=== PATIENT | female | born 2000 | race African-American/Black ===

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

== ENCOUNTER 2021-08-22 10:10 | Outpatient (REF) | payer OTHER, SELFPAY ==
[2021-08-22 14:03] LABS: CT PCR NOT DETECTED (Not Detect.); NG PCR NOT DETECTED (Not Detect.)
[2021-08-23 09:15] LABS: BV Int Neg Control Negative (Negative); BV Int Pos Control Positive (Positive)
== END 2021-08-22 10:11 | disposition home or self-care (01) ==
LOC: HO.LAB 10:10
PROVIDERS: Visit Provider Advanced Practice Midwife
DX: Z11.3 Encounter for screening for infections with a predominantly sexual mode of transmission (principal); Z20.2 Contact with and (suspected) exposure to infections with a predominantly sexual mode of transmission
CPT/HCPCS: 87480; 87491; 87510; 87591; 87660

== ENCOUNTER 2022-09-29 07:27 | Emergency (ER) | payer OTHER, SELFPAY ==
[2022-09-29 07:32] VITALS: BP 114/75; PULSE 77; RESP 16; TEMP 36.3; O2SAT 99; BMI 19.7
--- NOTE | 2022-09-29 07:41 | ED_ITS ---
HPI - General Adult General Chief complaint: General Medical Stated complaint: neck inj Time Seen by Provider: 09/29/22 07:40 Source: patient Mode of arrival: ambulatory Limitations: no limitations History of Present Illness HPI narrative: 22 yo female presents to the ER for evaluation of right sided neck pain that started 4 days ago when she woke up from sleep. She states she she went to move she heard a pop on the right side of her neck and had pain and limited range of motion. She states over the weekend this slowly got better. Today she woke up again with worsening pain and tightness in the right side of her neck. It is worse with any movement and palpation of the right posterior neck. She denies radiation into the head or arm, no nausea, vomiting. No injuries. MD complaint: right sided neck pain Onset (ago): day(s) (4) Location: neck Radiation: non-radiation Severity: moderate Severity scale (1-10): 6 Quality: aching and sharp Pain Consistency: intermittent Relieving factors: rest Exacerbating factors: movement Associated symptoms: denies other symptoms Treatments prior to arrival: none Related Data Previous Rx's Medication Instructions Recorded norgestimate 0.25 mg-ethinyl 1 tab PO DAILY #84 tabs 08/22/21 estradiol 35 mcg tablet (Sprintec (28)) cyclobenzaprine 10 mg tablet 10 mg PO TID PRN muscle spasm #14 09/29/22 tabs lidocaine 5 % topical patch 1 patch topical DAILY #15 ea 09/29/22 naproxen 500 mg tablet 500 mg PO BID PRN pain #20 tabs 09/29/22 Allergies Allergy/AdvReac Type Severity Reaction Status Date / Time No Known Allergies Allergy Verified 08/20/20 08:40 Review of Systems Review of Systems: Yes all other systems are reviewed and are negative [facility] Family History Family History Mother HTN (hypertension) Father Diabetes HTN (hypertension) Social History Social History (Updated 08/22/21 @ 09:08 by KAYLA Ayala) Alcohol intake: current Alcohol intake frequency: holidays/special occasions only Patient Tobacco Use Status: Never used Tobacco Advance Directives: No Advance Directives Information Provided: No Gender identity: Female Physical Exam ED Vital Signs: Vital Signs - 24 hr 09/29/22 07:32 Temperature 97.3 F Pulse Rate 77 Respiratory Rate 16 Blood Pressure 114/75 Pulse Oximetry 99 Oxygen Delivery Method Room Air BMI result Body Mass Index 19.7 Appearance: Alert. Oriented X3. No acute distress. Head: normocephalic, atraumatic. Eyes: Pupils equal, round and reactive to light. ENT: Pharynx normal. No tonsillar swelling or exudate. Neck: Normal inspection. Neck supple. No midline tenderness. There is palpable spasm and soft tissue tenderness of the right lateral and posterior neck, paraspinous muscles. CVS: Normal heart rate and rhythm. Pulses normal. Respiratory: No respiratory distress. Breath sounds normal. Abdomen: Soft and nontender. +BS x4 Skin: Skin warm and dry. Normal skin color. Normal skin turgor. No rashes. Extremities: No lower extremity edema. No joint swelling. Neuro/psych: Oriented X 3. No motor deficit. No sensory deficit. CN II-XII intact. Normal speech and cognition. Medications Administered Discontinued Medications Generic Name Dose Route Start Last Admin Trade Name Deonq PRN Reason Stop Dose Admin Acetaminophen 975 mg 09/29/22 07:57 09/29/22 08:20 Acetaminophen 325 Mg Tablet PO 09/29/22 07:58 975 mg ONCE ONE Administration Cyclobenzaprine HCl 10 mg 09/29/22 07:57 09/29/22 08:20 Cyclobenzaprine Hcl 10 Mg Tablet PO 09/29/22 07:58 10 mg ONCE ONE Administration Ketorolac Tromethamine 30 mg 09/29/22 07:57 09/29/22 08:20 Ketorolac Tromethamine 30 Mg/Ml Vial IM 09/29/22 07:58 30 mg ONCE ONE Administration Lidocaine 1 patch 09/29/22 07:57 09/29/22 08:20 Lidocaine 4 % Patch Adh..Patch TRANSDERMA 09/29/22 07:58 1 patch ONCE ONE Administration Protocol Medical Decision Making Medical Decision Making MDM Narrative: 22 yo female presenting with right sided neck pain and limited ROM for a few days. She heard a pop sensation a few days ago. Most likely muscular. She does have palpable soft tissue tenderness and spasm of the posterior neck on the right and upper trapezius. Doubt carotid dissection. Will hold off on CTA head/neck and treat muscular pain. At this time she is stable for d/c home, return precautions discussed. Differential Diagnosis Differential Diagnoses: The differential diagnosis associated with the presentation includes torticollis, cervical strain, less likely carotid dissection, fracture, subluxation Independent Historian Clinical information obtained from an independent historian. History obtained from or confirmed by: Parent External Record Review External record reviewed: Prior outpatient labs Tests considered The following testing was considered but not selected: CTA head/neck considered Prescription Management I considered prescription management with: Pain Medication and Other (muscle relaxer) Critical Care Time Critical Care Time Critical Care Time: No Discharge Plan Discharge Clinical Impression: Torticollis Patient Disposition: Home, Self-Care Instructions: Spasmodic Torticollis (ED) Additional Instructions: Your pain is most likely due to muscle strain and spasm. Rest. No strenuous activity. No bending, lifting or twisting. Use ice several times per day for 20 minutes at a time and then change to heat after 24 hours Gently work on range of motion of the neck and massage the area. Take medications as prescribed to help with pain and discomfort. Follow up with your Primary Care Doctor. If you develop new or worsening symptoms call 911 or come back to the ER for further evaluation. Prescriptions: New cyclobenzaprine 10 mg tablet 10 mg PO TID PRN (Reason: muscle spasm) Qty: 14 0RF lidocaine 5 % adhesive patch,medicated 1 patch topical DAILY Qty: 15 0RF Rx Instructions: leave on most painful area for up to 12 hrs naproxen 500 mg tablet 500 mg PO BID PRN (Reason: pain) Qty: 20 0RF No Action norgestimate-ethinyl estradiol [Sprintec (28)] 0.25-35 mg-mcg tablet 1 tab PO DAILY Qty: 84 4RF Referrals: Tiffanie Yoon FNP [Primary Care Provider] - Stand Alone Forms: Work/School Release Interventions: ED Discharge Assessment Last Done: 09/29/22 08:29 Discharge Date/Time: 09/29/22 08:30
[2022-09-29] MEDS: Cyclobenzaprine HCl 10 MG TABLET PO (08:20)
[2022-09-29] MEDS: Lidocaine 4 % Patch ADH..PATCH 1 PATCH TRANSDERMA (08:20)
[2022-09-29] MEDS: Acetaminophen 325 MG TABLET 975 MG PO (08:20)
[2022-09-29] MEDS: Ketorolac Tromethamine 30 MG/ML VIAL IM (08:20)
== END 2022-09-29 08:30 | disposition home or self-care (01) ==
PROVIDERS: Emergency Provider Emergency Medicine; PCP Registered Nurse
DX: G24.3 Spasmodic torticollis (principal)
CPT/HCPCS: 96372; 99283; 99284; J1885

== ENCOUNTER 2022-12-19 11:33 | Emergency (ER) | payer OTHER, SELFPAY ==
[2022-12-19 11:36] VITALS: BP 135/93; PULSE 67; RESP 18; TEMP 36.6; O2SAT 99; BMI 19.0
--- NOTE | 2022-12-19 11:36 | ED_ITS ---
HPI - General Adult General Chief complaint: Urogenital-Female Stated complaint: uti Time Seen by Provider: 12/19/22 12:25 Source: patient Mode of arrival: ambulatory Limitations: no limitations History of Present Illness HPI narrative: Patient is a 22 year old assigned female at with no reported medical history presenting to the emergency department today with painful and more frequent urination. Patient states that since yesterday she has had more painful and increased urination. Patient denies any dizziness, lightheadedness, abdominal pain, nausea, vomiting, fever, chills, blurry vision, double vision, loss of vision, chest pain, difficulty breathing, shortness of breath, back pain, night sweats, increased urinary urgency, blood in her stool, syncope or a near syncopal episode, recent trauma or falls, bowel incontinence, bladder incontinence, bowel retention, bladder retention, or any other complaints at this time. Onset (ago): day(s) Relieving factors: none Exacerbating factors: none Associated symptoms: denies other symptoms Treatments prior to arrival: none Related Data Previous Rx's Medication Instructions Recorded norgestimate 0.25 mg-ethinyl 1 tab PO DAILY #84 tabs 08/22/21 estradiol 35 mcg tablet (Sprintec (28)) cyclobenzaprine 10 mg tablet 10 mg PO TID PRN muscle spasm #14 09/29/22 tabs lidocaine 5 % topical patch 1 patch topical DAILY #15 ea 09/29/22 naproxen 500 mg tablet 500 mg PO BID PRN pain #20 tabs 09/29/22 cefuroxime axetil 250 mg tablet 250 mg PO BID 7 days #14 tabs 12/19/22 Allergies Allergy/AdvReac Type Severity Reaction Status Date / Time No Known Allergies Allergy Verified 12/19/22 11:36 Review of Systems Constitutional: Constitutional: Reports no additional constitutional complaints, Denies chills, Denies fever(s) and Denies night sweats Eyes: Eyes: Reports no additional eye complaints, Denies blurry vision, Denies change in vision, Denies diplopia, Denies eye discharge, Denies loss of vision and Denies eye pain ENT: Denies dizziness Cardiovascular: Cardiovascular: Reports no additional cardiovascular complaints, Denies chest pain, Denies lightheadedness, Denies Loss of Con sciousness and Denies dyspnea Respiratory: Respiratory: Reports no additional respiratory complaints and Denies dyspnea Gastrointestinal: Gastrointestinal: Reports no additional gastrointestinal complaints, Denies abdominal pain, Denies melena, Denies hematochezia, Denies change in bowel habits and Denies change in stool character Genitourinary: Genitourinary: Denies hematuria, Denies urinary frequency, Reports dysuria, Denies urinary incontinence, Denies urinary hesitancy and Denies urinary urgency Musculoskeletal: Musculoskeletal: Reports no additional musculoskeletal complaints, Denies numbness and Denies tingling Neurologic: Denies dizziness, Denies loss of vision, Denies numbness and Denies tingling Psychiatric: Psychiatric: Reports no additional psychiatric complaints Endocrine: Endocrine: Reports no additional endocrine complaints Hematologic/Lymphatic: Hematologic/Lymphatic: Reports no additional hematologic/lymphatic complaints Allergic/Immunologic: Allergic/Immunologic: Reports no additional allergic/immunologic complaints PMFSH Past Medical History Attestation statement: The following information was validated with the patient. Source: old records reviewed and nursing notes reviewed Family History Family History Mother HTN (hypertension) Father Diabetes HTN (hypertension) Social History Social History Alcohol intake: current Alcohol intake frequency: holidays/special occasions only Patient Tobacco Use Status: Never used Tobacco Gender identity: Female Physical Exam ED Vital Signs: Vital Signs - 24 hr 12/19/22 11:36 Temperature 98 F Pulse Rate 67 Respiratory Rate 18 Blood Pressure 135/93 H Pulse Oximetry 99 Oxygen Delivery Method Room Air BMI result Body Mass Index 19.0 Const General: cooperative, no acute distress, alert and awake Nutritional Appearance: well nourished Orientation/consciousness: patient oriented x3 Limitations: no limitations [facility] Head: Yes normal to inspection and Yes atraumatic Ears: hearing grossly normal bilaterally and external ears normal General nose exam: Normal external nose present, no nasal discharge noted and no epistaxis Face and sinus: Yes normal facial exam, No abrasion and No laceration Mouth: Normal oral and palatal mucosa present, no drooling and no muffled voice Eyes General: appearance normal, both eyes and all related structures Periorbital: periorbital findings normal Eyelids: Yes eyelids normal Conjunctivae: conjunctivae normal Pupils: Equal, round and reactive pupils present EOM: EOMs intact bilaterally Neck Neck: Yes normal visual inspection, Yes full ROM and Yes no lymphadenopathy Chest Chest palpation & inspection: normal inspection of the chest Resp Effort & Inspection: normal respiratory effort and able to speak in complete sentences GI Inspection: Yes normal to inspection Palpation (GI): Soft to palpation, not firm, nontender and no guarding General: Yes no CVA tenderness Back/Spine/Pelvis Back: no CVA tenderness Neuro General: patient oriented x3 and moves all extremities Cranial nerves: Yes Equal, round and reactive pupils present Cognition (Neuro): normal cognition Motor exam (neuro): 5/5 motor strength present throughout Sensory Exam: Normal double simultaneous stimulation for sensation Coordination: [id number] test normal Extrem General: Yes normal to inspection, Yes full ROM and Yes capillary refill normal Psych Appearance: grossly normal Mental Status: mental status grossly normal Affect: normal affect Attitude: cooperative Thought process: Normal thought process present Thought content: Normal thought content present Insight: Good insight present (Psych) Course Course Course Narrative: RME performed by Shiloh Wilson PA-C. Patient is a 22 year old assigned female at presenting to the emergency department with painful and increased urination. Labs ordered. Patient placed back in the waiting room pending room availability and results. Medical Decision Making Medical Decision Making MDM Narrative: Patient is a 22 year old assigned female at with no reported medical hist ory presenting to the emergency department today with painful and increased urination. Patient's physical exam was unremarkable. Patient's urine showed evidence of infection. I explained my physical exam findings as well as all test results to the patient. I answered all questions asked by the patient. I stressed the importance of the patient taking her medication as prescribed. I stressed the importance of the patient following up with her primary care provider. I stressed the importance of the patient returning to the emergency department immediately if her symptoms were to worsen or if she were to develop any dizziness, shortness of breath, difficulty breathing, chest pain, blurry vision, loss of vision, nausea, vomiting, abdominal pain, fever, chills, back pain, or any other complaints. Patient verbalized agreement and understanding with this treatment plan and discharge. Differential Diagnosis Differential Diagnoses: The differential diagnosis associated with the presentation includes UTI Lab Data [facility] Lab Attestation statement: I reviewed the patient's lab results. My interpretation of these results are in the [facility] Rationale portion of this note. Labs: Lab Results 12/19/22 Range/Units 11:44 Urine Color Yellow Urine Appearance Cloudy Urine pH 6.0 (5.0-9.0) Ur Specific [place] 1.020 (1.005-1.025) Urine Protein Trace (Neg-Trace) mg/dL Urine Glucose (UA) Negative (Negative) mg/dL Urine Ketones Trace (Negative) mg/dL Urine Blood Large (3+) H (Negative) Urine Nitrite Positive H (Negative) Ur Leukocyte Esterase Moderate (2+) H (Negative) Urine RBC >20 H (0-2) /HPF Urine WBC >50 H (0-5) /HPF Ur Squamous Epith Cells 6-10 (0-2) /HPF Urine Bacteria 4+ (None Seen) Hyaline Casts 11-20 (0-2) /LPF Urine Test NEGATIVE (NEGATIVE) Prescription Management I considered prescription management with: Antibiotic (patient prescribed an antibiotic for her UTI.) Discharge Plan Discharge Clinical Impression: Urinary tract infection Patient Disposition: Home, Self-Care Instructions: Urinary Tract Infection in Women (DC) Additional Instructions: Follow up with your primary care provider. Return to the emergency department immediately if your symptoms worsen or if you develop any dizziness, shortness of breath, difficulty breathing, chest pain, blurry vision, loss of vision, nausea, vomiting, abdominal pain, fever, chills, back pain, or any other complaints. Prescriptions: New cefuroxime axetil 250 mg tablet 250 mg PO BID 7 Days Qty: 14 0RF No Action cyclobenzaprine 10 mg tablet 10 mg PO TID PRN (Reason: muscle spasm) Qty: 14 0RF lidocaine 5 % adhesive patch,medicated 1 patch topical DAILY Qty: 15 0RF Rx Instructions: leave on most painful area for up to 12 hrs naproxen 500 mg tablet 500 mg PO BID PRN (Reason: pain) Qty: 20 0RF norgestimate-ethinyl estradiol [Sprintec (28)] 0.25-35 mg-mcg tablet 1 tab PO DAILY Qty: 84 4RF Referrals: Tiffanie Yoon FNP [Primary Care Provider] - Stand Alone Forms: Work/School Release Print Language: Korean
[2022-12-19 11:53] LABS: Appearance Urine Cloudy; Color Urine Yellow; Glucose Urine UA Negative (Negative); Leukocyte Esterase Urine Moderate (2+) (Negative); Nitrite Urine Positive (Negative); UMIC TRIGGER UACC YES; Urine Blood Large (3+) (Negative); Urine Ketones Trace mg/dL (Negative); Urine Protein Trace mg/dL (Neg-Trace)
[2022-12-19 11:55] LABS: UPreg QC Valid YES; Urine Pregnancy NEGATIVE (NEGATIVE)
[2022-12-19 12:18] LABS: Bacteria Urine 4+ (None Seen); RBC Urine >20 /HPF (0-2); UACC Culture Trigger YES; WBC Urine >50 /HPF (0-5)
--- OUTSIDE RECORDS SUMMARY | 2022-12-19 12:30 | XMS_ITS | Continuity of Care Document ---
Author Name Unknown Organization [facility] Address [address] [place] [address]- Care Team Providers Care [id number] Application Developer Name Role Phone Car WESTBROOK, Tiffanie Guerrero Primary Care Physici an Encounter [facility] Date(s): 04/17/22 - 05/17/22 [facility]/[place] [address]- [place] Allergies, Adverse Reactions, Alerts No Known Allergies Immunizations Given and Recorded Vaccine Date Status Refusal Reason hepatitis B adult vaccine 05/16/22 Recorded hepatitis B adult vaccine 1 04/16/22 Given Varicella Virus Vaccine 04/16/22 Given [id number] 12y+ bivalent booster vax 01/17/22 Recorded influenza virus vaccine, inactivated 12/18/21 Give n influenza virus vaccine, inactivated 01/04/19 Vladimir rded influenza virus vaccine, inactivated 11/27/15 Vladimir rded SARS-CoV-2 mRNA ([id number]) vax 04/22/21 Recorded SARS-CoV-2 (COVID-19) mRNA BNT-162b2 vac 09/21/20 Recorded meningococcal group B vaccine 12/02/18 Recorded meningococcal group B vaccine 01/25/18 Recorded meningococcal group B vaccine 12/02/17 Recorded Meningococcal Conjugate Vaccine 12/02/18 Recorded tetanus/diphtheria/pertussis, acel(Tdap) 12/02/18 Recorded Human Papillomavirus Vaccine 06/07/16 Recorded Human Papillomavirus Vaccine 01/17/16 Recorded Human Papillomavirus Vaccine 11/22/14 Recorded influenza virus vaccine, live 11/22/14 Recorded Hepatitis A Pediatric Vaccine 11/22/14 Recorded 1Result Comment: Mfd: Dynavax Medications ciclopirox topical 0.77% suspension See Instructions, Topical: Lacquer (solution): Apply to affected toenail(s) and adjacent skin once daily in combination with weekly nail trimming and periodic nail debridement. Remove with alcohol every 7 days; continue therapy until nail clearance (m... Start Date: 04/11/22 Stop Date: 08/09/22 Status: Ordered 03/21 oral tablet 1 tablet, By Mouth, Daily, # 28 tablet, 0 Refills, Maintenance, 06/22/19 16:02:00 EDT, Tablet Start Date: 06/22/19 Status: Ordered ketoconazole 2% topical shampoo 1 application, Topically, Once, PRN as needed, apply to full back and arms. wait 5 minutes, then wash off. repeat as needed., # 120 mL, 0 Refills, Soft Stop, 12/18/21 15:44:00 EDT, Shampoo, [facility]/pharmacy #[id number], Partial fill upon patient request if th... Start Date: 12/18/21 Status: Ordered Patient Care team information Care Team Personnel Name: Car WESTBROOK, Tiffanie Guerrero Position: [facility] Associate Professional Member Role: PCP Address: Address: [address] [place] [id number]- Care Team Related Persons Name: ANDRES HINES Address: home [address] [place] [address]
--- OUTSIDE RECORDS SUMMARY | 2022-12-19 12:30 | XMS_ITS | Continuity of Care Document ---
Author Name Unknown Organization [facility] Address [address] [place] [address]- Care Team Providers Care Screen Printing Press Operator Name Role Phone Car WESTBROOK, Tiffanie Guerrero Primary Care Physici an Encounter [facility] Date(s): 05/30/22 - 06/29/22 [facility]/[place] [address]- [place] Allergies, Adverse Reactions, Alerts No Known Allergies Immunizations Given and Recorded Vaccine Date Status Refusal Reason hepatitis B adult vaccine 05/16/22 Recorded hepatitis B adult vaccine 1 04/16/22 Given Varicella Virus Vaccine 04/16/22 Given [id number] 12y+ bivalent booster vax 01/17/22 Recorded influenza virus vaccine, inactivated 12/18/21 Give n influenza virus vaccine, inactivated 01/04/19 Vladimir rded influenza virus vaccine, inactivated 11/27/15 Vladimir rded SARS-CoV-2 mRNA ([id number]-talq-[id number]) vax 04/22/21 Recorded SARS-CoV-2 (COVID-19) mRNA BNT-162b2 [...] Refills, Soft Stop, 12/18/21 15:44:00 EDT, Shampoo, [facility]/pharmacy #[id number], Partial fill upon patient request if th... Start Date: 12/18/21 Status: Ordered Patient Care team information Care Team Personnel Name: Car WESTBROOK, Tiffanie Guerrero Position: [facility] Associate Professional Member Role: PCP Address: Address: [address] [place] [phone]- Care Team Related Persons Name: ANDRES HINES Address: home [address] [place] [address]
--- OUTSIDE RECORDS SUMMARY | 2022-12-19 12:30 | XMS_ITS | Continuity of Care Document ---
Author Name Unknown Organization [facility] Address [address] [place] [address]- Care Team Providers Care Supervisor Photocomposition Name Role Phone Car WESTBROOK, Tiffanie Guerrero Primary Care Physici an Encounter [facility] Date(s): 04/15/22 - 05/15/22 [facility]/[place] [address]- [place] Allergies, Adverse Reactions, Alerts No Known Allergies Immunizations Given and Recorded Vaccine Date Status Refusal Reason hepatitis B adult vaccine 1 04/16/22 Given Varicella Virus Vaccine 04/16/22 Given [id number] 12y+ bivalent booster vax 01/17/22 Recorded influenza virus vaccine, inactivated 12/18/21 Give n influenza virus vaccine, inactivated 01/04/19 Vladimir rded influenza virus vaccine, inactivated 11/27/15 Vladimir rded SARS-CoV-2 mRNA ([id number]) vax 04/22/21 Recorded SARS-CoV-2 (COVID-19) mRNA BNT-162b2 [...] Refills, Soft Stop, 12/18/21 15:44:00 EDT, Shampoo, [facility]/pharmacy #[id number], Partial fill upon patient request if th... Start Date: 12/18/21 Status: Ordered Patient Care team information Care Team Personnel Name: Car WESTBROOK, Tiffanie Guerrero Position: [facility] Associate Professional Member Role: PCP Address: Address: [address] [place] [phone]- Care Team Related Persons Name: ANDRES HINES Address: home [address] [place] [address]
--- OUTSIDE RECORDS SUMMARY | 2022-12-19 12:30 | XMS_ITS | Continuity of Care Document ---
Author Name Unknown Organization [facility] Address [address] [place] [address]- Care Team Providers Care Extension Service Agent Name Role Phone Car WESTBROOK, Tiffanie Guerrero Primary Care Physici an Encounter [facility] Date(s): 05/16/22 - 06/15/22 [facility]/[place] [address]- Attending Physician: Jean Bailey Admitting Physician: Admtr, [id number] Referring Physician: Admtr, [id number] Allergies, Adverse Reactions, Alerts No Known Allergies Immunizations Given and Recorded Vaccine Date Status Refusal Reason hepatitis B adult vaccine 05/16/22 Recorded hepatitis B adult vaccine 1 04/16/22 Given Varicella Virus Vaccine 04/16/22 Given [id number] 12y+ bivalent booster vax 01/17/22 Recorded influenza virus vaccine, inactivated 12/18/21 Give n influenza virus vaccine, inactivated 01/04/19 Vladimir rded influenza virus vaccine, inactivated 11/27/15 Vladimir rded SARS-CoV-2 mRNA ([id number]-zvlb-[id number]) vax 04/22/21 Recorded SARS-CoV-2 (COVID-19) mRNA BNT-162b2 [...] Refills, Soft Stop, 12/18/21 15:44:00 EDT, Shampoo, [facility]/pharmacy #[id number], Partial fill upon patient request if th... Start Date: 12/18/21 Status: Ordered Patient Care team information Care Team Personnel Name: Car WESTBROOK, Tiffanie Guerrero Position: [facility] Associate Professional Member Role: PCP Address: Address: [address] [place] [phone]- Care Team Related Persons Name: ANDRES HINES Address: home [address] [place] [id number]
--- OUTSIDE RECORDS SUMMARY | 2022-12-19 12:30 | XMS_ITS | Continuity of Care Document ---
Author Name Unknown Organization [facility] Address [address] [place] [address]- Care Team Providers Care Returns Supervisor Name Role Phone Car WESTBROOK, Tiffanie Guerrero Primary Care Physici an [place] [facility] [place] [facility] [place] 09/05/22 - 10/05/22 [facility] [place] [place] [address]- [place] Allergies, Adverse Reactions, Alerts No Known Allergies Immunizations Given and Recorded Vaccine Date Status Refusal Reason hepatitis B adult vaccine 05/16/22 Recorded hepatitis B adult vaccine 1 04/16/22 Given Varicella Virus Vaccine 04/16/22 Given [id number] 12y+ bivalent booster vax 01/17/22 Recorded influenza virus vaccine, inactivated 12/18/21 Give n influenza virus vaccine, inactivated 01/04/19 Vladimir rded influenza virus vaccine, inactivated 11/27/15 Vladimir rded SARS-CoV-2 mRNA (ieyfjpu-nuvq-rrxtd) vax 04/22/21 Recorded SARS-CoV-2 (COVID-19) mRNA BNT-162b2 [...] 11/22/14 Recorded 1Result Comment: Mfd: Dynavax Medications 03/21 oral tablet 1 tablet, By Mouth, [...] Personnel Name: Car WESTBROOK, Tiffanie Guerrero Position: [facility] PCO Associate Professional Member Role: PCP Address: Address: [address] [place] [address]- Care Team Related Persons Name: ANDRES HINES Address: home [address] [place] [id number]
--- OUTSIDE RECORDS SUMMARY | 2022-12-19 12:30 | XMS_ITS | Continuity of Care Document ---
Author Name Unknown Organization [facility] Address [address] [place] [address]- Care Team Providers Care Cad Developer Name Role Phone Car WESTBROOK, Tiffanie Guerrero Primary Care Physici an [place] [facility] [place] - 05/30/22 [facility]/[place] [address]- [place] Allergies, Adverse Reactions, Alerts No Known Allergies Immunizations Given and Recorded Vaccine Date Status Refusal Reason hepatitis B adult vaccine 05/16/22 Recorded hepatitis B adult vaccine 1 04/16/22 Given Varicella Virus Vaccine 04/16/22 Given [id number]-[id number] 12y+ bivalent booster vax 01/17/22 Recorded influenza virus vaccine, inactivated 12/18/21 Give n influenza virus vaccine, inactivated 01/04/19 Vladimir rded influenza virus vaccine, inactivated 11/27/15 Vladimir rded SARS-CoV-2 mRNA (oubwvia-xvrr-bcapo) vax 04/22/21 Recorded SARS-CoV-2 (COVID-19) mRNA BNT-162b2 [...] Refills, Soft Stop, 12/18/21 15:44:00 EDT, Shampoo, [facility]/pharmacy #[id number], Partial fill upon patient request if th... Start Date: 12/18/21 Status: Ordered Patient Care team information Care Team Personnel Name: Car WESTBROOK, Tiffanie Guerrero Position: [facility] PCO Associate Professional Member Role: PCP Address: Address: [address] [place] [address]- Care Team Related Persons Name: ANDRES HINES Address: home [address] [place] [address]
--- OUTSIDE RECORDS SUMMARY | 2022-12-19 12:30 | XMS_ITS | Continuity of Care Document ---
Author Name Unknown Organization [facility] Address [address] [place] [address]- Care Team Providers Care Cruise Counselor Name Role Phone Ronald MELENDEZ, Jhonathan Castellano Primary Care Physicia n [place] [facility] [place]14/[place] - 07/15/19 [facility] [place] [address] [place] [address]- [facility] Attending Physician: Tom Mejia MD, Cyn Admitting Physician: Tom Mejia MD, Cyn Medications 03/21 oral tablet 1 tablet, By Mouth, Daily, # 28 tablet, 0 Refills, Maintenance, 06/22/19 16:02:00 EDT, Tablet Start Date: 06/22/19 Status: Ordered
--- OUTSIDE RECORDS SUMMARY | 2022-12-19 12:31 | XMS_ITS | Continuity of Care Document ---
Author Name Unknown Organization [facility] Address [address] [place] [address]- Care Team Providers Care Adult Basic Studies Teacher Name Role Phone Car WESTBROOK, Tiffanie Guerrero Primary Care Physici an [place] [facility] [place] Date(s): 12/26/21 - 01/25/22 [facility] [place] [address]- Attending Physician: Admtr, Ar8 Admitting Physician: Admtr, Ar8 Referring Physician: Admtr, Ar8 Allergies, Adverse Reactions, Alerts No Known Allergies Immunizations Given and Recorded Vaccine Date Status Refusal Reason influenza virus vaccine, inactivated 12/18/21 Give n influenza virus vaccine, inactivated 01/04/19 Vladimir rded influenza virus vaccine, inactivated 11/27/15 Vladimir rded SARS-CoV-2 mRNA (ycmwgwp-ownb-fvdzt) vax 04/22/21 Recorded SARS-CoV-2 (COVID-19) mRNA BNT-162b2 [...] Recorded Hepatitis A Pediatric Vaccine 11/22/14 Recorded Medications 03/21 oral tablet 1 tablet, By Mouth, Daily, # 28 tablet, 0 Refills, Maintenance, 06/22/19 16:02:00 EDT, Tablet Start Date: 06/22/19 Status: Ordered ketoconazole 2% topical shampoo 1 application, Topically, Once, PRN as needed, apply to full back and arms. wait 5 minutes, then wash off. repeat as needed., # 120 mL, 0 Refills, Soft Stop, 12/18/21 15:44:00 EDT, [facility]/pharmacy #[id number], Partial fill upon patient request if th... Start Date: 12/18/21 Status: Ordered Patient Care team information Care Team Personnel Name: Car WESTBROOK, Tiffanie Guerrero Position: [facility] PCO Associate Professional Member Role: PCP Address: Address: [address] [place] [id number]
--- OUTSIDE RECORDS SUMMARY | 2022-12-19 12:31 | XMS_ITS | Continuity of Care Document ---
Author Name Unknown Organization [facility] Address [address] [place] [address]- Care Team Providers Care Heavy Duty Mechanic Farm Equipment Name Role Phone Car WESTBROOK, Tiffanie Guerrero Primary Care Physici an [place] [facility] [place] - 05/22/22 [facility] [place] [address]- [place] Allergies, Adverse Reactions, Alerts No Known Allergies Immunizations Given and Recorded Vaccine Date Status Refusal Reason hepatitis B adult vaccine 05/16/22 Recorded hepatitis B adult vaccine 1 04/16/22 Given Varicella Virus Vaccine 04/16/22 Given [id number]-3pNTK 12y+ bivalent booster vax 01/17/22 Recorded influenza virus vaccine, inactivated 12/18/21 Give n influenza virus vaccine, inactivated 01/04/19 Vladimir rded influenza virus vaccine, inactivated 11/27/15 Vladimir rded SARS-CoV-2 mRNA (fbbslvb-ayzq-rhpqr) vax 04/22/21 Recorded SARS-CoV-2 (COVID-19) mRNA BNT-162b2 [...] Refills, Soft Stop, 12/18/21 15:44:00 EDT, Shampoo, [facility]/pharmacy #[id number], Partial fill upon patient request if th... Start Date: 12/18/21 Status: Ordered Patient Care team information Care Team Personnel Name: Car WESTBROOK, Tiffanie Guerrero Position: [facility] PCO Associate Professional Member Role: PCP Address: Address: [address] [place] [address]- Care Team Related Persons Name: ANDRES HINES Address: home [address] [place] [address]
--- OUTSIDE RECORDS SUMMARY | 2022-12-19 12:31 | XMS_ITS | Continuity of Care Document ---
Author Name Unknown Organization [facility] Address [address] [place] [address]- Care Team Providers Care Patient Service Specialist Name Role Phone Car WESTBROOK, Tiffanie Guerrero Primary Care Physici an Encounter [facility] Date(s): 04/11/22 - 05/11/22 [facility] [address]- [place] Allergies, Adverse Reactions, Alerts No Known Allergies Immunizations Given and Recorded Vaccine Date Status Refusal Reason hepatitis B adult vaccine 1 04/16/22 Given Varicella Virus Vaccine 04/16/22 Given [id number]-WlV-[id number] 12y+ bivalent booster vax 01/17/22 Recorded influenza virus vaccine, inactivated 12/18/21 Give n influenza virus vaccine, inactivated 01/04/19 Vladimir rded influenza virus vaccine, inactivated 11/27/15 Vladimir rded SARS-CoV-2 mRNA (rajlbtv-vecn-jjuvm) vax 04/22/21 Recorded SARS-CoV-2 (COVID-19) mRNA BNT-162b2 [...] Stop, 12/18/21 15:44:00 EDT, Shampoo, [facility]/pharmacy #[id number], Partial fill upon patient request if th... Start Date: 12/18/21 Status: Ordered Patient Care team information Care Team Personnel Name: Car WESTBROOK, Tiffanie Guerrero Position: [facility] PCO Associate Professional Member Role: PCP Address: Address: [address] [place] [phone]- Care Team Related Persons Name: ANDRES HINES Address: home [address] [place] [address]
--- OUTSIDE RECORDS SUMMARY | 2022-12-19 12:31 | XMS_ITS | Continuity of Care Document ---
Author Name Unknown Organization [facility] Address [address] [place] [address]- Care Team Providers Care Budget Clerk Name Role Phone Car WESTBROOK, Tiffanie Guerrero Primary Care Physici an Encounter [facility] [place] Date(s): 02/08/22 - 03/10/22 [facility]/[place] [address]- [place] Allergies, Adverse Reactions, Alerts No Known Allergies Immunizations Given and Recorded Vaccine Date Status Refusal Reason influenza virus vaccine, inactivated 12/18/21 Give n influenza virus vaccine, inactivated 01/04/19 Vladimir rded influenza virus vaccine, inactivated 11/27/15 Vladimir rded SARS-CoV-2 mRNA (fglkaop-mvhk-bqdjb) vax 04/22/21 Recorded SARS-CoV-2 (COVID-19) mRNA BNT-162b2 [...] Hepatitis A Pediatric Vaccine 11/22/14 Recorded Medications June03/21 oral tablet 1 tablet, By Mouth, Daily, [...] Personnel Name: Car WESTBROOK, Tiffanie Guerrero Position: [facility] PCO Associate Professional Member Role: PCP Address: Address: [address] [place] [id number]
--- OUTSIDE RECORDS SUMMARY | 2022-12-19 12:31 | XMS_ITS | Continuity of Care Document ---
Author Name Unknown Organization [facility] Address [address] [place] [address]- Care Team Providers Care Barrel Rib Matting Machine Operator Name Role Phone Car WESTBROOK, Tiffanie Guerrero Primary Care Physici an Encounter [facility] [place] Date(s): 12/20/21 - 01/19/22 [facility]/[place] [address]- [place] Allergies, Adverse Reactions, Alerts No Known Allergies Immunizations Given and Recorded Vaccine Date Status Refusal Reason influenza virus vaccine, inactivated 12/18/21 Give n influenza virus vaccine, inactivated 01/04/19 Vladimir rded influenza virus vaccine, inactivated 11/27/15 Vladimir rded SARS-CoV-2 mRNA (nzapayg-kbqb-qlegc) vax 04/22/21 Recorded SARS-CoV-2 (COVID-19) mRNA BNT-162b2 [...] Associate Professional Member Role: PCP Address: Address: [address] [place] [id number] [place]
--- OUTSIDE RECORDS SUMMARY | 2022-12-19 12:31 | XMS_ITS | Continuity of Care Document ---
Author Name Unknown Organization [facility] Address [address] [place] [address]- Care Team Providers Care Disposal Worker Name Role Phone Car WESTBROOK, Tiffanie Guerrero Primary Care Physici an Encounter [facility] [place] Date(s): 12/20/21 - 01/19/22 [facility]/[place] [address]- [place] Allergies, Adverse Reactions, Alerts No Known Allergies Immunizations Given and Recorded Vaccine Date Status Refusal Reason influenza virus vaccine, inactivated 12/18/21 Give n influenza virus vaccine, inactivated 01/04/19 Vladimir rded influenza virus vaccine, inactivated 11/27/15 Vladimir rded SARS-CoV-2 mRNA (syhmxdi-xwjn-ixsrm) vax 04/22/21 Recorded SARS-CoV-2 (COVID-19) mRNA BNT-162b2 [...] Associate Professional Member Role: PCP Address: Address: [address] [place] [id number]
--- OUTSIDE RECORDS SUMMARY | 2022-12-19 12:31 | XMS_ITS | Continuity of Care Document ---
Author Name Unknown Organization [facility] Address [address] [place] [address]- Care Team Providers Care Mold Release Worker Name Role Phone Ronald MELENDEZ, Jhonathan Castellano Primary Care Physicia n Encounter [facility] Date(s): 06/22/19 - 06/29/19 [facility]/[address] [address]- [facility] Attending Physician: Tom Mejia MD, Cyn Medications 03/21 oral tablet 1 tablet, By Mouth, Daily, # 28 tablet, 0 Refills, Maintenance, 06/22/19 16:02:00 EDT, Tablet Start Date: 06/22/19 Status: Ordered
== END 2022-12-19 12:35 | disposition home or self-care (01) ==
LOC: HO.ED 12:29
PROVIDERS: Physician Assistant Medical; Emergency Provider Emergency Medicine; PCP Registered Nurse
DX: N39.0 Urinary tract infection, site not specified (principal); Z79.899 Other long term (current) drug therapy
CPT/HCPCS: 81001; 81025; 87086; 87088; 87186; 99282; 99283

== ENCOUNTER 2023-10-15 11:03 | Outpatient (AMB) | payer BC, SELFPAY ==
--- NOTE | 2023-10-15 11:18 | MHC.OFFVIS ---
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 She is sexually active with her steady partner. She went off the pills before last year's visit she has using condoms and uses them consistently 100% and feels very confident in this and her partner has no problem using condoms. I did offer her plan B just in case a condom broke and she initially declined because she has no worry about it however I did offer as it will save her potentially some cost just in case she ever needed it so prescription sent to her pharmacy with 4 refills. She actually feels better both in terms of mood and also the stress of remembering to take a pill, being off control pills. 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 She feels but the staffing there is better than other facility so it is good. She goes to the gym. The only concern she has sometimes is her knees her she has a family history of arthritis and she herself used to run track and do long jump and play basketball. [facility] Family History Mother HTN (hypertension) Father Diabetes HTN (hypertension) Social History Alcohol intake: current Alcohol intake frequency: holidays/special occasions only Patient Tobacco Use Status: Never used Tobacco Gender identity: Female Female Reproductive History Menstrual Age of Menarche: 13 Duration of menses: 3-5 days control method: none Total pregnancies: 0 History of abnormal pap smear: No (no previous pap) Physical Exam Vital Signs: BMI result Body Mass Index 19.7 Const General: healthy appearing, comfortable, no acute distress, well developed and alert Nutritional Appearance: average body habitus Orientation/consciousness: patient oriented x3 Limitations: no limitations HEENT Head: Yes normocephalic Neck Neck: Yes normal visual inspection Chest Chest palpation & inspection: normal inspection of the chest Breast/axilla inspection: normal inspection of the breasts and normal inspection of the axillae Breast/axilla palpation: normal palpation of the breasts and normal palpation of the axillae Resp Effort & Inspection: normal respiratory effort GI Inspection: Yes normal to inspection, No Abdominal wall edema and No distended Palpation (GI): Soft to palpation and nontender General: Yes bladder normal to palpation External Female Exam: normal external appearance and normal appearance of the urethra Speculum Exam - Vagina: normal appearance of the vagina, normal palpation and normal vaginal discharge Speculum Exam - Cervix: normal appearance of the cervix, normal palpation and nontender Bimanual exam- vagina & uterus: normal bimanual exam, normal palpation, uterine size normal, bladder normal to palpation, consistency normal, normal palpation, uterine mobility normal, uterine shape normal, No Cervical tenderness present, non-tender and no cervical motion tenderness Bimanual Exam- Adnexa, other: normal adnexae, no masses, normal and No adnexal tenderness Neuro General: patient oriented x3 Assessment & Plan Assessment & Plan (1) Potential exposure to STD: Code(s): Z20.2 - Contact with and (suspected) exposure to infections with a predominantly sexual mode of transmission Category: Medical (2) Well woman exam with routine gynecological exam: Code(s): Z01.419 - Encounter for gynecological examination (general) (routine) without abnormal findings Category: Medical (3) control counseling: Comment: Is happy being off the pills. uses condoms 100%. prescription sent for Plan B just in case she needs it. Code(s): Z30.09 - Encounter for other general counseling and advice on contraception Category: Medical (4) Cervical cancer screening: Comment: First Pap being done today 10/15/2023. Code(s): Z12.4 - Encounter for screening for malignant neoplasm of cervix Category: Medical Plan -----Discussed in this visit the following: healthy balanced diet, regular and consistent exercise, getting recommended health screens, doing the best she can for her particular health concerns, kegel exercises, pap smear screening and followup recommendations, mammography screening and SBE, normal changes in cycles in her life stage--- .----I reviewed available options for Control Methods and their associated side effect profiles. In particular, we discussed the method most of interest to her. She is comfortable using condoms in her partner is consistent with them and does not give her grief about them discussed that this is a great situation for her if this ever changes she may it changing her plan. I reviewed how to take B just in case she ever would need to use it, and to expect some irregular bleeding if she did. Reviewed frequency of visits and that if this Pap smear is normal her next Pap smear would be in 3 years we do recommend yearly screening for STIs but if she does not have any special concerns and decides to not come for year it would not affect her health in anyway so she is making sure she gets her primary care needs met as well. Reviewed her excellent self-care with in terms of healthy eating exercise work life balance and safer sex. Otherwise we will see her next year. Medications: New levonorgestrel (Plan B One-Step) 1.5 mg PO ONCE 1 tab 4RF Coding Level of Care Code Est Pt Prev Care 18-39y([address]) Diagnoses Potential exposure to STD Z20.2 Well woman exam with routine gynecological exam Z01.419 control counseling Z30.09 Cervical cancer screening Z12.4
[2023-10-15 11:19] VITALS: BMI 19.7
--- OUTSIDE RECORDS SUMMARY | 2023-10-21 06:12 | XMS_ITS | Continuity of Care Document ---
Author Organization [facility] Address [address] [place] [address]- Care Team Providers Care Skiving Machine Operator Name Role Phone Car WESTBROOK, Tiffanie Guerrero Primary Care Physici an [place] [facility] [place] 01/01/23 - 01/31/23 [facility]/[place] [address]- Attending Physician: Jean Bailey Admitting Physician: AdmtrJean Referring Physician: Admtr, Ar8 Allergies, Adverse Reactions, Alerts No Known Allergies Immunizations Given and Recorded Vaccine Date Status Refusal Reason hepatitis B adult vaccine 05/16/22 Recorded hepatitis B adult vaccine 1 04/16/22 Given Varicella Virus Vaccine 04/16/22 Given DFFC-YlR-2mRVH 12y+ bivalent booster vax 01/17/22 Recorded influenza virus vaccine, inactivated 12/18/21 Give n influenza virus vaccine, inactivated 01/04/19 Vladimir rded influenza virus vaccine, inactivated 11/27/15 Vladimir rded SARS-CoV-2 mRNA (nebmdvk-tpzb-xzkqr) vax 04/22/21 Recorded SARS-CoV-2 (COVID-19) mRNA BNT-162b2 [...] 0 Refills, Soft Stop, 12/18/21 15:44:00 EDT, Shampogerald, [facility]/pharmacy #[id number], Partial fill upon patient request if th... Start Date: 12/18/21 Status: Ordered Patient Care team information Care Team Personnel Name: Car WESTBROOK, Tiffanie Guerrero Position: [facility] PCO Associate Professional Member Role: PCP Address: Address: [address] [place] [address]- Care Team Related Persons Name: ANDRES HINES Address: home [address] [place] [id number]
--- OUTSIDE RECORDS SUMMARY | 2023-10-21 06:13 | XMS_ITS | Continuity of Care Document ---
Author Organization [facility] Address [address] [place] [address]- Care Team Providers Care Junior Software Developer Name Role Phone Car WESTBROOK, Tiffanie Guerrero Primary Care Physici an [place] [facility] [place]/18/23 - 04/17/23 [facility]/[place] [address]- [place] Allergies, Adverse Reactions, Alerts No Known Allergies Immunizations Given and Recorded Vaccine Date Status Refusal Reason hepatitis B adult vaccine 05/16/22 Recorded hepatitis B adult vaccine 1 04/16/22 Given Varicella Virus Vaccine 04/16/22 Given BDLO-XfY-4rOKE 12y+ bivalent booster vax 01/17/22 Recorded influenza virus vaccine, inactivated 12/18/21 Give n influenza virus vaccine, inactivated 01/04/19 Vladimir rded influenza virus vaccine, inactivated 11/27/15 Vladimir rded SARS-CoV-2 mRNA (iokxgvy-yqyo-acsok) vax 04/22/21 Recorded SARS-CoV-2 (COVID-19) mRNA BNT-162b2 [...] 11/22/14 Recorded 1Result Comment: Mfd: Dynavax Medications June03/21 oral tablet 1 tablet, By [...] Personnel Name: Car WESTBROOK, Tiffanie Guerrero Position: [facility] PCO Associate Professional Member Role: PCP Address: Address: [address] [place] [id number]- Care Team Related Persons Name: ANDRES HINES Address: home [address] [place] [address]
== END 2023-10-15 12:02 | disposition home or self-care (01) ==
LOC: HO.HWSM 11:03
PROVIDERS: PCP Registered Nurse; Visit Provider Advanced Practice Midwife
DX: Z01.419 Encounter for gynecological examination (general) (routine) without abnormal findings (principal); Z30.09 Encounter for other general counseling and advice on contraception; Z20.2 Contact with and (suspected) exposure to infections with a predominantly sexual mode of transmission
CPT/HCPCS: 99395

== ENCOUNTER 2023-10-15 11:03 | Outpatient (REF) | payer BC, SELFPAY ==
[2023-10-16 05:15] LABS: CT PCR NOT DETECTED (Not Detect.); NG PCR NOT DETECTED (Not Detect.)
[2023-10-16 11:32] LABS: Bacterial Vaginosis PCR NEGATIVE (Negative); Candida Group PCR DETECTED (Not Detect); Candida glab krusei PCR NOT DETECTED (Not Detect); Trichomonas vaginalis PCR NOT DETECTED (Not Detect)
== END 2023-10-15 11:04 | disposition home or self-care (01) ==
LOC: HO.LAB 11:03
PROVIDERS: PCP Registered Nurse; Visit Provider Advanced Practice Midwife
DX: N89.8 Other specified noninflammatory disorders of vagina (principal); Z20.2 Contact with and (suspected) exposure to infections with a predominantly sexual mode of transmission; Z01.419 Encounter for gynecological examination (general) (routine) without abnormal findings
CPT/HCPCS: 0352U; 36415; 87491; 87591; 87625; 88175

== ENCOUNTER 2025-02-22 09:54 | Outpatient (REF) | payer SELFPAY ==
--- OUTSIDE RECORDS SUMMARY | 2025-02-22 10:46 | XMS_ITS | Data Portability ---
Author Organization [facility] s, [address] Address [address] [place] [address] Care Team Providers Care Installer Soft Top Name Role Phone [facility] Primary Care Gray duarte Assessment No assessment recorded. Plan of Treatment Reminders Order Date Submit Date Provider Last Modified By Organization Details Last Modified Time Details Appointments None recorded. Lab rapid strep group A, throat 2022 023 [address], [address] [place], [address], 3 13:59:23 streptococc us group A, culture, throat 2022 023 [place] [facility], [address] [place] [address], [place], [address], 3 14:06:09 Referral None recorded. Procedures None recorded. Surgeries None recorded. Imaging None recorded. Medication Orders amoxicillin 875 mg-potassiu m clavulanate [address] [facility], [address] [facility] [place], [address], 4 17:17:27 Flonase Sensimist 27.5 mcg/actuati on nasal spray,suspe nsion [address] [facility], [address] [facility] [place], [address], 4 17:17:28 albuterol sulfate HFA 90 mcg/actuati on aerosol inhaler 2022 023 [email or web address] 2 [facility], [address] [place], [address], 4 17:07:15 prednisone 20 mg tablet 2022 023 [email or web address] 2 [facility], [address] [place], [address], 4 17:06:59 benzonatate 200 mg capsule 2022 023 [email or web address] 2 [facility], [address] [place], [address], 4 17:06:12 Allergy Relief (fluticason e) 50 mcg/actuati on nasal spray,suspe nsion 2022 023 [email or web address] 2 [facility], [address] [place], [address], 4 17:07:11 amoxicillin 875 mg tablet 2022 023 [facility], [address] [place], [address], 3 16:56:24 fexofenadin e-pseudoeph edrine ER 180 mg-240 mg tablet,ext. release 24 hr 2022 023 [email or web address] [facility], [address] [place], [address], 3 16:56:36 Allergy Relief (fluticason e) 50 mcg/actuati on nasal spray,suspe nsion 2022 023 [email or web address] 2 [facility], [address] [place], [address], 4 17:07:11 Patient TargetsNo targets recorded. Patient Instructions Encounter Date Encounter Id Patient Instructions Last Modified By Organization Details Last Modified Time 12/12/2022 [id number] sore throat: car e instructions Not available 12/12/2022 13:59:21 Sinusitis is an infection of the lining of the sinus cavities in your head. Sinusitis often follows a cold. It causes pain and pressure in your head and face. In most cases, sinusitis gets better on its own in 1 to 2 weeks. But some mild symptoms may last for several weeks. Sometimes antibiotics are needed. if you are having problems. It's also a good idea to know your test results and keep a list of the medicines you take. How can you care for yourself at home? Take an veni-ttq-aijsahf pain medicine. Avoid Ibuprofen, Aleve and Aspirin if . If the doctor prescribed antibiotics, take them as directed. Do not stop taking them just because you feel better. You need to take the full course of antibiotics. Be careful when taking vnmb-oce-qibqint cold or influenza (flu) medicines and Tylenol at the same time. Many of these medicines have acetaminophen, which is Tylenol. Read the labels to make sure that you are not taking more than the recommended dose. Too much acetaminophen (Tylenol) can be harmful. Breathe warm, moist air from a steamy shower, a hot bath, or a sink filled with hot water. Avoid cold, dry air. Using a humidifier in your home may help. Follow the directions for cleaning the machine. Use saline (saltwater) nasal washes. This can help keep your nasal passages open and wash out mucus and bacteria. You can buy saline nose drops at a grocery store or drugstore. Or you can make your own at home by adding 1 teaspoon (5 millilitres) of salt and 1 teaspoon (5 millilitres) of baking soda to 2 cups (500 mL) of distilled water. If you make your own, fill a bulb syringe with the solution, insert the tip into your nostril, and squeeze gently. Blow your nose. Put a hot, wet towel or a warm gel pack on your face 3 or 4 times a day for 5 to 10 minutes each time. Try a decongestant nasal spray like oxymetazoline (Drixoral). Do not use it for more than 3 days in a row. Using it for more than 3 days can make your congestion worse. Not available 12/12/2022 13:59:19 Discussed potential complications and intervention options with the patient during this visit. Patient was instructed to increase room humidity and eat soft bland foods. Raising the head of the bed, lozenges, and saline nasal spray were also recommended. Patient may take ibuprofen or acetaminophen as needed for pain control. If the issue does not improve in 24-48 hours, patient should return to the clinic for follow-up. You have been prescribed an antibiotic for your bacterial illness. While antibiotics are sometimes necessary, they can have a negative impact upon the healthy bacteria within your body. This can result in diarrhea/loose stools and yeast infections. By taking probiotics during the course of your prescription, you can lessen the probability of these undesirable side effects. Probiotics can be purchased uxah-emv-sascxru at your pharmacy in the form of capsules or gummies. They are also found naturally in yogurt with live cultures. Mix salt into a quarter-glass of warm water and stir until no more salt will dissolve. Gargle and spit out the salt water mixture one mouthful at a time until the glass is empty. Repeat 4 times daily. Hand hygiene is a teran measure for preventing spread to others, especially after coughing or sneezing and before preparing foods or eating, and we remind all patients of its importance. Please discard of your current tooth brush and get a new one after being on the antibiotic for 3-4 days to prevent reinfection. You are considered contagious until you have the antibiotic for 24 hours. We have sent out for lab results, typically take 3-5 days to return. Not available 12/12/2022 13:59:14 01/02/2023 [id number] Patient instruct ed on worsening signs and symptoms that would require further evaluation by ED or PCP such as fever of 101.0 or greater, congestion accompanied with coughing, vomiting, diarrhea, abdominal pain, decreased oral intake, lethargy, or other new symptom(s) experienced not discussed during this visit. Use humidifier and ensure good hydration. If you experience new concerning symptoms, shortness of breath, respiratory distress, or chest pain go to the ER. Use the medications prescribed. May use Decongestants if tolerated and no history of elevated blood pressure or Diabetes. Use saline nasal saline and Flonase daily for1 week. You may use tylenol for pain/fever. Do not take prednisone with Ibuprofen. Get some extra rest. When should you call for help? Call anytime you think you may need emergency care. For example, call if: You have severe trouble breathing. Call your doctor now or seek immediate medical care if: You have new or worse trouble breathing. You cough up dark brown or bloody mucus (sputum). You have a new or higher fever. You have a new rash. Watch closely for changes in your health, and be sure to contact your doctor if: You cough more deeply or more often, especially if you notice more mucus or a change in the color of your mucus. You are not getting better as expected. Not available 01/02/2023 17:10:07 01/09/2024 [id number] Acute Sinusitis: Care Instructions [email or web address] Not available 01/09/2024 17:17:25 Reason for Referral None Reported. Results Created Date Observation Date Name Description Value Unit Range Abnormal Flag Note LastModifiedBy Organization Detail LastModifiedTime 12/13/1912/15/2022 BETA STREP GP A CULTU RE beta strep gp A culture NEGATI VE Refer ence Range : Negat fish Not Available [facility] ([facility]) [address] [facility], [place], [address], 12/15/2022 14:06:08 12/13/1912/12/2022 rapid strep group A, throa t Unknown Analyte negati ve Not Available [address] [place], [address], 12/12/2022 13:40:46 Result Notes None recorded. Problems No Known Problems Medical Equipment None Reported. Allergies No known drug allergies Medications Name Sig Start Date Stop Date Status Note LastModified by Organization Details LastModified Time cyclobenzap rine 10 mg tablet TAKE 1 TAB EVERY 8 HOURS 01/08 completed Not Available Not Available Not Available norgestimat e 0.25 mg-ethinyl estradiol 0.035 mg tablet TAKE 1 TABLET BY MOUTH EVERY DAY 12/12 completed Not Available Not Available Not Available cefuroxime axetil 250 mg tablet TAKE 1 TABLET BY MOUTH 2 TIMES A DAY FOR 7 DAYS 01/02 completed Not Available Not Available Not Available ketoconazol e 2 % shampoo PLEASE SEE ATTACHED FOR DETAILED DIRECTION S 12/12 completed Not Available Not Available Not Available fluconazole 150 mg tablet PLEASE SEE ATTACHED FOR DETAILED DIRECTION S 12/12 completed Not Available Not Available Not Available benzonatate 200 mg capsule TAKE 1 CAPSULE BY MOUTH THREE TIMES A DAY NEEDED FOR 7 DAYS 01/08 completed Not Available Not Available Not Available prednisone 20 mg tablet TAKE 2 TABLETS EVERY DAY BY ORAL ROUTE IN THE MORNING FOR 4 DAYS. 01/08 completed Not Available Not Available Not Available acetaminoph en 500 mg tablet TAKE 1 TABLET BY MOUTH EVERY 4 TO 6 HOURS NEEDED 01/08 completed Not Available Not Available Not Available amoxicillin 875 mg tablet TAKE 1 TABLET BY MOUTH EVERY 12 HOURS WITH MEALS FOR 10 DAYS 01/02 completed Not Available Not Available Not Available ibuprofen 600 mg tablet TAKE 1 TABLET BY MOUTH EVERY 6 TO 8 HOURS NEEDED 01/08 completed Not Available Not Available Not Available albuterol sulfate HFA 90 mcg/actuati on aerosol inhaler INHALE 2 PUFFS EVERY 4 TO 6 HOURS NEEDED FOR 10 DAYS 01/08 completed Not Available Not Available Not Available clotrimazol e 1 % topical cream APPLY TO AFFECTED AREA TWICE A DAY FOR 14 DAYS 12/12 completed Not Available Not Available Not Available naproxen 500 mg tablet TAKE 1 EVERY 8 HOURS 01/08 completed Not Available Not Available Not Available amoxicillin 875 mg-potassiu m clavulanate 125 mg tablet TAKE 1 TABLET EVERY 12 HOURS BY ORAL ROUTE WITH MEAL(S) FOR 10 DAYS. active Not Available Not Available No t Available oxycodone 5 mg tablet TAKE 1 TABLET EVERY 6 HOURS NEEDED FOR BREAKTHRO UGH PAIN. 01/08 completed Not Available Not Available Not Available ciclopirox 0.77 % topical suspension PLEASE SEE ATTACHED FOR DETAILED DIRECTION S 12/12 completed Not Available Not Available Not Available fexofenadin e-pseudoeph edrine ER 180 mg-240 mg tablet,ext. release 24 hr Take 1 tablet every day by oral route in the evening for 10 days. 01/02 completed Not Available Not Available Not Available chlorhexidi ne gluconate 0.12 % mouthwash RINSE MOUTH WITH 15ML (1 CAPFUL) FOR 30 SECONDS IN MORNING AND EVENING AFTER BRUSHING, THEN SPIT 01/08 completed Not Available Not Available Not Available Allergy Relief (fluticason e) 50 mcg/actuati on nasal spray,suspe nsion Dickinson 1 spray every day by intranasa l route as directed for 30 days. 01/08 completed Not Available Not Available Not Available Flonase Sensimist 27.5 mcg/actuati on nasal spray,suspe nsion Take 1 spray every day by nasal route. 2023 active Not Available Not Available Not Avai lable Vitals Date Recorded Body weight Body mass index (BMI) Body height Oxygen saturation Heart rate Respiratory rate Body temperature Systolic And Diastolic Provider Name and Address Organization Details Last Updated DateTime 3 52179.9 g 18.5 kg/m2 170.18 cm 98 % 64 /min 17 /min 98.5 [degF] 121/72 mm[Hg] Claudia Kent PA - [facility] 3 13:36:35 Date Recorded Body height Body mass index (BMI) Body weight Pain severity - 0-10 verbal numeric rating [Score] - Reported Respiratory rate Oxygen saturation Heart rate Body temperature Systolic And Diastolic Provider Name and Address Organization Details Last Updated DateTime 3 170.18 cm 18.8 kg/m2 57763.0 8 g 0 18 /min 100 % 65 /min 97.5 [degF] 115/74 mm[Hg] HEIDI BENTLEY PA - [facility] 3 16:58:10 Date Recorded Body height Body mass index (BMI) Body weight Oxygen saturation Heart rate Respiratory rate Body temperature Systolic And Diastolic Provider Name and Address Organization Details Last Updated DateTime 4 170.18 cm 18.8 kg/m2 79168.0 8 g 99 % 66 /min 18 /min 98.2 [degF] 111/70 mm[Hg] Danielle De La Rosa PA - [facility] 4 17:05:16 Social History Question Answer Notes LastModified by Organizat ion Details LastModified Time Tobacco Smoking Status Never Smoker Claudia hernandez PA R[facility] 12/12/2022 13:40:09 Have You Had A Flu Shot This Season? Yes Information not available 12/12/2022 If No, Would You Like A Flu Shot Today? A/P Information not available 01/02/2023 Have You Had Direct Contact, Or Contact During Intimacy, With Monkeypox Rash, Scabs, Or Body Fluids From A Person With Monkeypox? No Information not available 12/12/2022 What Was The Date Of Your Most Recent Tobacco Screening? 12/12/2022 Information not available 12/12/2022 Have You Recently Traveled Abroad? No Information not available 12/12/2022 Are You Currently In School? Yes Information not available 01/02/2023 Sex: Unknown Functional Status Question Answer Note LastModified by [employer] ion Details LastModified Time Do you use any illicit or recreational drugs? No Information not available 12/12/2022 Do you or have you ever used any other forms of tobacco or nicotine? No Information not available 12/12/2022 What is your level of alcohol consumption? Occasional Information not available 12/12/2022 Are you currently employed? Yes Information not available 01/02/2023 Mental Status None recorded. Family History Relationship Description Onset Age of this Age Resolved Age Notes LastModified by Organization Details LastModified Time Father Diabetes mellitus Not available 12/12 13:39:26 Mother Diabetes mellitus Not available 12/12 13:39:46 Medical History No medical history recorded. Gynecological History Statement/Question Response Date of LMP 01/06/2024 Is there any chance of ? No LMP Definite Obstetrics History GPAL:G 0 P 0 0 0 0 Immunizations Vaccine Type Date Status Note Provider Nam e and Address Organization Details Recorded Time meningococcal B, recombinant 9 completed HEIDI DEPINTO null, PA - [facility] 01/02/2023 16:56:15 meningococcal B, recombinant 8 completed HEIDI DEPINTO david PA - [facility] 01/02/2023 16:56:15 meningococcal B, OMV 8 completed HEIDI DEPINTO null, PA - [facility] 01/02/2023 16:56:15 COVID-19, mRNA, LNP-S, PF, 30 mcg/0.3 mL dose 1 completed HEIDI DEPINTO null, PA - [facility] 01/02/2023 16:56:16 COVID-19, mRNA, LNP-S, PF, 30 mcg/0.3 mL dose, jimmy-sucrose 2 completed HEIDI DEPINTO null, PA - [facility] 01/02/2023 16:56:16 COVID-19, mRNA, LNP-S, bivalent, PF, 30 mcg/0.3 mL dose 2 completed HEIDI DEPINTO null, PA - [facility] 01/02/2023 16:56:16 COVID-19, mRNA, LNP-S, PF, jimmy-sucrose, 30 mcg/0.3 mL 3 completed HEIDI DEPINTO null, PA - [facility] 01/02/2023 16:56:16 Tdap 9 completed HEIDI DEPINTO null, PA - [facility] 01/02/2023 16:56:16 varicella 3 completed HEIDI DEPINTO null, PA - [facility] 01/02/2023 16:56:16 Influenza, split virus, trivalent, preservative 2 completed HEIDI DEPINTO null, PA - [facility] 01/02/2023 16:56:16 Influenza, split virus, trivalent, PF 6 completed HEIDI DEPINTO null, PA - [facility] 01/02/2023 16:56:16 HPV, quadrivalent 7 completed HEIDI DEPINTO null, PA - [facility] 01/02/2023 16:56:16 HPV, quadrivalent 5 completed HEIDI DEPINTO null, PA - [facility] 01/02/2023 16:56:16 HPV, quadrivalent 6 completed HEIDI DEPINTO null, PA - [facility] 01/02/2023 16:56:16 Hep B, adult 3 completed HEIDI DEPINTO null, PA - [facility] 01/02/2023 16:56:16 Hep B, adult 3 completed HEIDI DEPINTO null, PA - [facility] 01/02/2023 16:56:16 Hep A, ped/adol, 2 dose 5 completed HEIDI DEPINTO null, PA - [facility] 01/02/2023 16:56:16 Meningococcal MCV4O 9 completed HIEDI DEPINTO null, PA - [facility] 01/02/2023 16:56:16 Influenza, live, quadrivalent, intranasal 5 completed HEIDI DEPINTO null, PA - [facility] 01/02/2023 16:56:16 Influenza, split virus, quadrivalent, PF 3 completed HEIDI DEPINTO null, PA - [facility] 01/02/2023 16:56:16 Influenza, split virus, quadrivalent, PF 9 completed HEIDI DEPINTO null, PA - [facility] 01/02/2023 16:56:16 Past Encounters Encounter ID Performer Location Encounter Start Date Encounter Closed Date Diagnosis/Indication Diagnosis SNOMED-CT Code Diagnosis ICD10 Code Diagnosis IMO Codes Diagnosis Note [id number] [address] [place] [address] 01/03/2022 16:05:56 01/03/2022 17:11:31 [id number] [address] [place] [address] 12/16/2020 18:18:09 12/16/2020 19:08:17 [id number] [address] [place] [address] 02/27/2019 16:03:12 02/27/2019 17:15:39 [id number] [address] [facility] JENNIFER Beck [address] 06/15/2019 17:34:46 06/15/2019 18:07:35 [id number] [address] [place] [address] 09/29/2020 09:12:40 09/29/2020 10:26:13 [id number] Kush Long NP [address] [place] [address] 12/12/2022 13:18:12 12/12/2022 14:01:41 Acute pharyngitis 657645312 J02.9 [id number] Kush Long NP [address] [place] [address] 01/02/2023 16:49:40 01/02/2023 17:14:41 Acute bronchitis [id number] J20.9 [id number] MOISES PHAN MD [address] [place] [address] 11/19/2023 10:22:08 11/27/2023 08:54:42 Left without being seen [id number] 9102 Z53.21 [id number] Daniel Martinez DO [address] [place] [address] 01/09/2024 16:27:55 01/09/2024 17:19:14 Acute sinusitis 84266033 J01.90 Given Hx and Sx and PE findings will Rx Antibiotic s and nasal spray Take antibiotic with food. Eat a yogurt daily or take a probiotic while taking the antibiotic . Recommend humidified airrest, fluidstyle nol/ibu prn Patient advised to follow up as needed for worsening symptoms or no improvemen t. Discussed concerning red flags with patient and reasons to follow up in the Emergency Department urgently. Health Concerns Section Related Observation LastModified by Organization Detai ls LastModified Time None Recorded Concern Status LastModified by Organization Details LastModified Time None Recorded Advance Directives Directive None Recorded Payers Insurance Date Sequence Insurance Name Policy Number Policy Ariza Covered Member ID Ariza Member ID Guarantor Name 01/09/2024 1 [place] [id number] Scott Lonnie [id number] Cathryn Fleming 11/19/2023 1 [facility] (MEDICAID HMO) [id number] Cathryn Fleming [id number] Cathryn Fleming Notes Date Note Type Note Provider Name and Address Organization Details Recorded Time 12/13/19 23 text/ht ml Sore throatReported by PatientSore ThroatFor associated symptoms, patient reportssore throat,hoarseness,coughing, andsinus pain/ congestionbut reportsno sputum production,no shortness of breath,no wheezing,no vomiting, andno nausea. For context, patient reportssick contactbut reportsno foreign travelandnon-smoker. For modifying factors, patient reportsexposed to strep non household. For source of patient information, patient reportsinformation obtained from patient,patient arrived at urgent care ambulatory, andlearning styles: auditory. For location, patient reportsthroat. For severity, patient reportsmild. For quality, patient reportssharpandburning. For onset/timing, patient reports3 days. Kush Long NP [address] [place], [address], [place] - [facility] 12/12/2022 14:00:00 01/03/20 23 text/ht ml Sinus Complaints UCReported by PatientHPIFor location, patient reportssinus pain,facial pain, andsinus pressure. For associated symptoms, patient reportsdifficulty breathing,post nasal drip,nasal passage blockage __, andcoughbut reportsno fever,no nausea or vomiting,no sore throat,no ear fullness,no nasal itching,no eye itching, andno dizziness. For quality, patient reportsworseningbut reportsminimal discomfortandclear. For context, patient reportsworse with environmental exposurebut reportsno recent upper respiratory infection,no recent sick contacts, andnot worse with seasonal allergen exposure. For onset/timing, patient reportsworse in amandworse in pm. For duration, patient reportsfrequent. For severity, patient reportsmoderate. For risk factors, patient reportsno current smoking or tobacco useandno history of nasal trauma. For alleviating factors, patient reportsoral steroids. For aggravating factors, patient reportsworse during an upper respiratory infection (a cold)andworse with excess fatigue. For prior treatment, patient reportsoral decongestant. Shortness of BreathReported by Patient CongestionReported by Patient CoughReported by PatientHPIFor quality, patient reportsharshanddrybut reportsintermittentandsymptoms worse with lying down. For severity, patient reportsworseningandpain with coughbut reportsmoderate. For timing, patient reportsworseningbut reportsgradual. For context, patient reportshistory of bronchitisbut reportspatient denies vapingandnon-smoker. For associated symptoms, patient reportshurts to breathbut reportsno fever,no chills,no chest pain,no heartburn,no nausea,no vomiting,no edema,no agitation,no wheezing, andno post nasal drip. For source of patient information, patient reportsinformation obtained from patient,patient arrived at urgent care ambulatory, andlearning styles: auditory. For duration, patient reportsconstantandsymptoms lasting over 2 weeks. For modifying factors, patient reportsat night. Kush Long NP [address] [place], [address], PA - [facility] 01/02/2023 17:11:48 01/09/20 24 text/ht ml Sinus Complaints UCReported by Patient3 yo female c/o sinus pain and pressure x 1 week+ congestion/PND+ LOPEZ+ ear pain+ sore throat No feverNo chillsNo nauseaNo vomitingNo coughNo wheezeNo difficulty breathing or respiratory distressNo CPNo Abdominal painNo diarrheaNo myalgiaNo fatigueNo rashNo dizzinessNo recent travelNo known sick contacts ROS as noted in the HPI Daniel Martinez DO [address] [place], [address], PA - [facility] 01/09/2024 17:18:22 OBGyn Episode No OBEpisode recorded.
[2025-02-22 16:59] LABS: Bacterial Vaginosis PCR NEGATIVE (Negative); Candida Group PCR NOT DETECTED (Not Detect); Candida glab krusei PCR NOT DETECTED (Not Detect); Trichomonas vaginalis PCR NOT DETECTED (Not Detect)
[2025-02-22 17:31] LABS: CT PCR NOT DETECTED (Not Detect.); NG PCR NOT DETECTED (Not Detect.)
== END 2025-02-22 09:55 | disposition home or self-care (01) ==
LOC: HO.LNP 09:54
PROVIDERS: PCP Registered Nurse; Visit Provider Advanced Practice Midwife
DX: Z01.419 Encounter for gynecological examination (general) (routine) without abnormal findings (principal); R53.83 Other fatigue; N94.89 Other specified conditions associated with female genital organs and menstrual cycle; Z20.2 Contact with and (suspected) exposure to infections with a predominantly sexual mode of transmission; Z30.09 Encounter for other general counseling and advice on contraception
CPT/HCPCS: 81515; 87491; 87591

== ENCOUNTER 2025-02-22 09:54 | Outpatient (AMB) | payer BC, SELFPAY ==
[2025-02-22 10:00] VITALS: BP 112/74; BMI 20.3
--- NOTE | 2025-02-22 10:00 | A.OFFVIS_ITS ---
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 C/o having cramping before period and after. 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 She wants to talk about cramping that she notices about a week before her. And about a week after her period she does not exactly writing down when it happens. She has been off the pills for quite a while and told me it last year's visit that she preferred being off the pills. She uses condoms for control and is content with them she is not interested in any extra testing for STIs but is open to cultures being done with the exam. She did not tell the nurse but she is in fact on an antifungal medication given to her by her clarification operator that she takes for 7 days every month and then she takes this 3 week break. It is for fungus on her toes or toenails and the clarification operator gave it to her and the reason she has to take it that way is because it is challenging for ones liver and so she has to get liver studies done every 3 months as well to check on her liver functions. She has been wondering if maybe she is anemic or something because she has been tired lately her periods last about 7 days and are heavy for about 4 days. She does see a primary care provider in [place] she does not know when her regular lab work was done last. She is not interested in blood work for STIs. 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 [employer] Gender identity: Female Female Reproductive History Menstrual Age of Menarche: 13 Date of last menstrual period: 02/12/25 control method: condoms Total pregnancies: 0 Number of Living Children: 0 Date of last pap smear: 10/14/23 History of abnormal pap smear: No Physical Exam Vital Signs: Last Vital Signs BP 112/74 02/22/25 10:00 BMI result Body Mass Index 20.3 Const General: healthy appearing, comfortable, no acute distress, well developed and alert Nutritional Appearance: average body habitus Orientation/consciousness: patient oriented x3 Limitations: no limitations HEENT Head: Yes normocephalic Neck Neck: Yes normal visual inspection Chest Chest palpation & inspection: normal inspection of the chest Breast/axilla inspection: normal inspection of the breasts and normal inspection of the axillae Breast/axilla palpation: normal palpation of the breasts and normal palpation of the axillae Resp Effort & Inspection: normal respiratory effort GI Inspection: Yes normal to inspection, No Abdominal wall edema and No distended Palpation (GI): Soft to palpation and nontender Other: Normal external exam vagina pink and moist normal scant clear mucus discharge cervix difficult to visualize extremely posterior long close thick mobile nontender uterus midposition to anteverted mobile nontender good tone with Kegel adnexa nontender General: Yes bladder normal to palpation External Female Exam: normal external appearance and normal appearance of the urethra Speculum Exam - Vagina: normal appearance of the vagina, normal palpation and normal vaginal discharge Speculum Exam - Cervix: normal appearance of the cervix, normal palpation and nontender Bimanual exam- vagina & uterus: normal bimanual exam, normal palpation, uterine size normal, bladder normal to palpation, consistency normal, normal palpation, uterine mobility normal, uterine shape normal, No Cervical tenderness present, non-tender and no cervical motion tenderness Bimanual Exam- Adnexa, other: normal adnexae, no masses, normal and No adnexal tenderness Neuro General: patient oriented x3 Results Reviewed Results Reviewed: 10/15/2023 Pap was negative in scanned section of lab reports was sent to [facility]. Assessment & Plan Assessment & Plan (1) Well woman exam with routine gynecological exam: Code(s): Z01.419 - Encounter for gynecological examination (general) (routine) without abnormal findings Category: Medical (2) Cervical cancer screening: Comment: First Pap being done today 10/15/2023=negative. Code(s): Z12.4 - Encounter for screening for malignant neoplasm of cervix Category: Medical (3) Fatigue: Code(s): R53.83 - Other fatigue Category: Medical (4) Potential exposure to STD: Code(s): Z20.2 - Contact with and (suspected) exposure to infections with a predominantly sexual mode of transmission Category: Medical (5) control counseling: Comment: Is happy being off the pills. uses condoms 100%. prescription sent for Plan B just in case she needs it. Code(s): Z30.09 - Encounter for other general counseling and advice on contraception Category: Medical (6) Uterine cramping: Code(s): N94.89 - Other specified conditions associated with female genital organs and menstrual cycle Category: Medical Plan -----Discussed in this visit the following: healthy balanced diet, regular and consistent exercise, getting recommended health screens, doing the best she can for her particular health concerns, kegel exercises, pap smear screening and followup recommendations, mammography screening and SBE, normal changes in cycles in her life stage--- . She is content on using condoms and does not want control pills feels better off of them. She just started the antifungal medication so we did discuss that she is interested in getting checked to see if she is anemic so I am also ordering a TSH to check because of her fatigue. Requested that she get portal information at the front office representative so she can check the labs herself. I recommend she keep track of when she gets the cramping exactly on a calendar it maybe that she is just getting some cramping before and after her periods as part of normal uterine function it is also possible that it could be related to when she has sex in terms of sexual activity. It is also possible that it has something to do with ovulation and it would be good for her to track it so that that will help her figure out exactly what it is. Additionally she inquired about whether not she has might have a weak bladder because once she found herself peeing on herself when she was out with friends drinking and did have to pee discussed all the different circumstances that contribute to many of us holding her urine for longer than is desired especially with work situations or being out where the bathrooms may not be clean and in general the we are all better off urinating with more frequency so that our bladder is not overly full and that does not set us up for that is situation she has excellent muscle tone and she is normal weight discussed the other issues that happen with aging and weight gain as well. Labs ordered we will see her in 1 year. She will not be due for another Pap for 2 years. She may check the H&H on the portal herself and if she has any questions whatsoever or if it seems low to please call us and we will review it with her. Orders: Orders Thyroid Stimulating Hormone Today R53.83 - Other fatigue, Z01.419 - Encounter for gynecological examination (general) (routine) without abnormal findings, Z12.4 - Encounter for screening for malignant neoplasm of cervix Complete Blood Count no Diff Today R53.83 - Other fatigue, Z01.419 - Encounter for gynecological examination (general) (routine) without abnormal findings, Z12.4 - Encounter for screening for malignant neoplasm of cervix CT NG by PCR Vag/Cerv Today Z11.3 - Encounter for screening for infections with a predominantly sexual mode of transmission Bacterial Vaginosis Panel Today Z11.3 - Encounter for screening for infections with a predominantly sexual mode of transmission Coding Level of Care Code Est Pt Prev Care 18-39y([id number]) Diagnoses Well woman exam with routine gynecological exam Z01.419 Cervical cancer screening Z12.4 Fatigue R53.83 Potential exposure to STD Z20.2 control counseling Z30.09 Uterine cramping N94.89
--- OUTSIDE RECORDS SUMMARY | 2025-02-22 10:00 | XMS_ITS | Clinical Summary ---
Author Organization [facility] Address [address] [place] [address] Care Team Providers Care Right Of Way Appraiser Name Role Phone Unavailable Primary Care Provider Unavailabl e Social History Tobacco Use Types Packs/Day Years Used Date Smoking Tobacco: Never Assessed Comments Unknown Sex and Gender Information Value Date Recorded Sex Assigned at Not on file Legal Sex Female 4:51 AM EST Gender Identity Not on file Sexual Orientation Not on file Plan of Treatment Health Maintenance Due Date Last Done Comments Gonorrhea/Chlamydia Screening 2001 HPV Vaccines (1 - 3-dose series) 01/28/2016 DTaP,Tdap,and Td Vaccines (1 - Tdap) 01/28/2020 Hepatitis B Vaccines (1 of 3 - 19+ 3-dose series) 01/28/2020 Cervical Cancer Screening: P ap Smear 2022 Depression Screening 03/02/2024 COVID-19 Vaccine (1 - 2024-2 6 season) 2024 Influenza Vaccine (#1) 2024 RSV Immunization Adult Patie nts (1 - 1-dose 75+ series) 01/28/2076 HIB Vaccines Aged Out No longer eligi ble based on patient's age to complete this topic Hepatitis A Vaccines Aged Out No long er eligible based on patient's age to complete this topic IPV Vaccines Aged Out No longer eligi ble based on patient's age to complete this topic MMR Vaccines Aged Out No longer eligi ble based on patient's age to complete this topic Meningococcal ACWY Vaccine Aged Out N o longer eligible based on patient's age to complete this topic Meningococcal B Vaccine Aged Out No l onger eligible based on patient's age to complete this topic Pneumococcal Vaccine: Pediat rics (0 to 5 Years) and At-Risk Patients (6 to 49 Years) Aged Out No longer eligible b ased on patient's age to complete this topic RSV Immunization Patients Un mejia 20 months Aged Out No longer eligible b ased on patient's age to complete this topic Varicella Vaccines Aged Out No longer eligible based on patient's age to complete this topic
--- OUTSIDE RECORDS SUMMARY | 2025-02-22 10:00 | XMS_ITS | Patient Health Record ---
[facility] Address [address] [place] [address] Care Team Providers Care Benefits Technician Name Role Phone Virginia Ching Unavailable [phone] Allergies No Known Allergies Reason For Referral No Information Medications Medication SIG (Take, Route, Frequency, Duration) Notes Start Date End Date Status Keflex 500 MG 1 capsule Orally lala ry 12 hrs; Duration: 10 day(s) 03/30/2014 Not-Ervin ing School Note . . . pt had a schedul ed appointment today; Duration: . 03/21/2014 Not-Taking Terbinafine HCl 250 MG 1 tablet Orally O nce a day for 7 days days then stop for 3 weeks repeat cycle; Duration: 90 days 01/05/2025 Active Immunizations Vaccine Route Administration Date Status Comme nts Influenza Unknown 01/05/2025 Refused Social History Tobacco Use: Social History Observation Description Date Details (start date - stop date) Never Smoker NA - NA Tobacco use other than smoking: Question Answer Notes Are you an other tobacco user? No Tobacco Control (Standard) Question Answer Notes Tobacco use: Nonsmoker Additional Findings: Tobacco non-user Current no nsmoker AUDIT-C (Standard) Question Answer Notes Did you have a drink contain ing alcohol in the past year? Yes How often did you have a dri nk containing alcohol in the past year? Declined to specify (0 point) How many drinks did you have on a typical day when you were drinking in the past year? Declined to specify (0 point) How often did you have six o r more drinks on one occasion in the past year? Declined to specify (0 point) Points 0 Interpretation Negative Problems Problem Type SNOMED Code ICD Code Onset Dates Problem Status W/U Status Risk Notes Problem Onychomycosis (445257376) Onychomycosis (B35.1) Active confirmed Vital Signs Blood pressure diastolic 80 mm Hg 01/05/2025 Height 5ft3in in 01/05/2025 Blood pressure systolic 120 mm Hg 01/05/2025 Weight 110 lbs 01/05/2025 BMI 19.48 kg/m2 01/05/2025 Encounters Encounter Location Date Provider Diagnosis [facility] [address] 01/05/2025 Virginia Black Pain in right toe(s) M79.674 ; Onychomycosis B35.1 and Pain in left toe(s) M79.[address] [address] 01/09/2025 Virginia Black Onychomycosis B35.1 Assessments Encounter Date Diagnosis (ICD Code) Assessment Notes Treatment Notes Treatment Clinical Notes Section Notes 01/05/2025 Pain in right toe(s) (ICD-10 - M79.674) 01/05/2025 Onychomycosis (ICD-10 - B35.1) Patient Educated with: FUNGUS NAIL INFECTIONS.pdf (FUNGUS NAIL INFECTIONS.pdf ) 01/09/2025 Onychomycosis (ICD-10 - B35.1) 01/05/2025 Pain in left toe(s) (ICD-10 - M79.675) Plan Of Treatment Pending Test Test Name Order Date *Liver Function Test (LFT) 01/05/2025 [id number] Destruction, 1-14 03/21/2014 [id number] Destruction, 1-14 04/20/2014 Next Appt Details Provider Name:Virginia Ching , 05/08/2025 11:30:00 AM, [address] [place], [address], Insurance Providers Payer Name Payer Address Payer Phone Subscriber Number Group Number Insured Name Patient Relationship to Insured Coverage Start Date Coverage End Date [facility] [address] [place] [phone] [id number] Maribel Fleming Child - Insured does not have Financial Responsibility (includes legally adopted child) 5 Medical (General) History Surgical History Surgery Date(Month/Year) finger surgery 08/2007
== END 2025-02-22 10:43 | disposition home or self-care (01) ==
LOC: HO.HWSM 09:54
PROVIDERS: PCP Registered Nurse; Visit Provider Advanced Practice Midwife
DX: Z01.419 Encounter for gynecological examination (general) (routine) without abnormal findings (principal); Z12.4 Encounter for screening for malignant neoplasm of cervix; R53.83 Other fatigue; Z20.2 Contact with and (suspected) exposure to infections with a predominantly sexual mode of transmission; Z30.09 Encounter for other general counseling and advice on contraception; N94.89 Other specified conditions associated with female genital organs and menstrual cycle
CPT/HCPCS: 99395; 99459